=== PATIENT | male | born 1955 | race Caucasian/White ===

== ENCOUNTER → 2020-06-30 | Emergency (ER) | payer MEDICARE, SELFPAY | END | disposition home or self-care (01) | LOC: M ED 15:59 | DX: S83.412A Sprain of medial collateral ligament of left knee, initial encounter (principal); M25.462 Effusion, left knee; X50.1XXA Overexertion from prolonged static or awkward postures, initial encounter; Y92.099 Unspecified place in other non-institutional residence as the place of occurrence of the external cause; Y93.9 Activity, unspecified; Y99.9 Unspecified external cause status; Z79.899 Other long term (current) drug therapy; Z88.8 Allergy status to other drugs, medicaments and biological substances ==